=== PATIENT | male | born 1970 | race African-American/Black ===

== ENCOUNTER 2019-12-26 15:05 | Outpatient (CLI) | payer OTHER ==
--- NOTE | 2019-12-26 15:29 | RAD ---
XR Lumbar Spine 2 Or 3 View HISTORY: Disability exam, low back pain COMPARISON: 12/10/2012 FINDINGS: Degenerative changes are again seen, most prominent at L5-S1 level. No fracture, subluxation or bony destruction is identified.
== END 2019-12-26 15:06 | disposition home or self-care (01) ==
LOC: BICRAD 15:05
PROVIDERS: ATTEND Internal Medicine
DX: Z02.71 Encounter for disability determination (principal)
CPT/HCPCS: 72100